=== PATIENT | male | born 1975 | race Caucasian/White ===

== ENCOUNTER → 2016-10-15 | Outpatient (REF) ==
[~2016-10-15] MED LIST: AMOXICILLIN 8751 TAB PO; NORCO 325 MG-51 TAB PO
== END ==
LOC: WSOH 12:09
DX: Z02.89 Encounter for other administrative examinations (principal)

== ENCOUNTER → 2016-10-31 | Outpatient (REF) | LOC: WSOH 09:30 | DX: Z00.00 Encounter for general adult medical examination without abnormal findings (principal) ==

== ENCOUNTER → 2017-03-04 | Outpatient (CLI) | payer OTHER | LOC: COL.VAS 07:17 | DX: I10 Essential (primary) hypertension (principal) ==

== ENCOUNTER → 2020-11-15 | Outpatient (CLI) | payer SELFPAY | LOC: WSOH 08:41 | DX: Z02.89 Encounter for other administrative examinations (principal) | CPT/HCPCS: G0463 ==